=== PATIENT | female | born 1950 | race Two or more races ===

== ENCOUNTER → 2017-07-25 | Outpatient (CLI) | payer MEDICARE, BC | END | disposition home or self-care (01) | LOC: MRI 10:43 | PROVIDERS: ATTEND Internal Medicine Critical Care Medicine | DX: S46.812A Strain of other muscles, fascia and tendons at shoulder and upper arm level, left arm, initial encounter (principal); X58.XXXA Exposure to other specified factors, initial encounter; Y93.89 Activity, other specified; Y92.89 Other specified places as the place of occurrence of the external cause; Y99.8 Other external cause status | CPT/HCPCS: 73221 ==

== ENCOUNTER → 2023-01-16 | Outpatient (CLI) | payer MEDICARE, BC | END | disposition home or self-care (01) | LOC: MRI 09:30 | PROVIDERS: ATTEND Internal Medicine Critical Care Medicine | DX: M75.111 Incomplete rotator cuff tear or rupture of right shoulder, not specified as traumatic (principal) | CPT/HCPCS: 73221 ==

== ENCOUNTER → 2023-03-30 | Outpatient (CLI) | payer MEDICARE, BC | END | disposition home or self-care (01) | LOC: US 10:24 | PROVIDERS: ATTEND Internal Medicine Critical Care Medicine | DX: M85.621 Other cyst of bone, right upper arm (principal) | CPT/HCPCS: 76881 ==

== ENCOUNTER → 2024-03-21 | Outpatient (CLI) | payer MEDICARE, BC | END | disposition home or self-care (01) | LOC: MRI 12:48 | PROVIDERS: ATTEND Internal Medicine Critical Care Medicine | DX: M47.26 Other spondylosis with radiculopathy, lumbar region (principal); M25.78 Osteophyte, vertebrae | CPT/HCPCS: 72195 ==

== ENCOUNTER → 2025-03-19 | Outpatient (CLI) | payer MEDICARE, BC | END | disposition home or self-care (01) | LOC: RAD 09:35 | PROVIDERS: ATTEND Internal Medicine Critical Care Medicine | DX: R05.9 Cough, unspecified (principal); M47.814 Spondylosis without myelopathy or radiculopathy, thoracic region; M41.84 Other forms of scoliosis, thoracic region | CPT/HCPCS: 71046 ==